=== PATIENT | female | born 1995 | race Caucasian/White ===

== ENCOUNTER 2018-07-31 12:15 | Emergency (ER) | payer OTHER ==
[~2018-07-31] VITALS: Ht 170.2 cm; Wt 90.7 kg
[2018-07-31] MEDS ORDERED: EFFEXOR 5050 MG/1 T1 PO (12:25)
[2018-07-31 12:50] LABS: ABSOLUTE BASOPHILS 0.1 thou/uL (0.0-0.2); ABSOLUTE EOSINOPHILS 0.3 thou/uL (0.0-0.7); ABSOLUTE LYMPHOCYTES 2.8 thou/uL (0.8-5.3); ABSOLUTE NEUTROPHILS 7.2 thou/uL (1.6-8.1); BASOPHILS 0.9 %; EOSINOPHILS 2.3 %; HEMATOCRIT 42.4 % (37.0-47.0); HEMOGLOBIN 14.3 gm/dL (12.0-15.0); LYMPHOCYTES 24.8 %; MCH 29.3 pg (26.0-34.0); MCHC 33.6 g/dL (28.0-37.0); MONOCYTES 8.7 %; NUCLEATED RBCS 0 /100WBC; PLATELET COUNT* 343 thou/uL (150-400); POLYS 63.3 %; RBC 4.88 mil/uL (4.20-5.00); RDW-CV 12.9 % (10.5-14.5); WBC 11.3 thou/uL (4.0-11.0)
[2018-07-31 12:59] LABS: ANION GAP 5 mmol/L (7-16); BUN 10 mg/dL (7-18); CALCIUM 9.6 mg/dL (8.5-10.1); CHLORIDE 100 mmol/L (98-107); CO2 28 mmol/L (21-32); CREATININE 0.8 mg/dL (0.6-1.3); GLUCOSE 95 mg/dL (70-99); POTASSIUM 3.4 mmol/L (3.5-5.1); SODIUM 133 mmol/L (136-145)
[2018-07-31 13:06] LABS: ALBUMIN 3.9 g/dL (3.4-5.0); ALKALINE PHOSPHATASE 65 U/L (46-116); SGOT 15 U/L (15-37); SGPT 29 U/L (30-65); TOTAL BILIRUBIN 0.3 mg/dL (<0.1-1.0); TOTAL PROTEIN 7.3 g/dL (6.4-8.2); TROPONIN-I LEVEL <0.06 ng/mL (<0.06)
[2018-07-31 13:23] VITALS: BP 108/78
--- NOTE | 2018-07-31 16:03 | EKG ---
[place] [address] ELECTROCARDIOGRAM REPORT Name: SUZAN TINEO [id number] Admission: 07/31/18 Attend Phys: Discharge: 07/31/18 Date of : [birth year] Report #: [id number] THIS REPORT FOR: //name// [facility] ED Test Date: 2018-07-31 Test Time: 12:21:57 Pat Name: SUZAN TINEO Department: Room: Gender: F [employer] Clerk: TESSIE : 1995 Requested By: Celio Finch Order Number: [id number] MD: King Mock Measurements Intervals [place] Rate: 105 P: 52 DE: 143 QRS: 31 QRSD: 92 T: 11 QT: 329 QTc: 435 Interpretive Statements Sinus tachycardia No previous ECG available for comparison Electronically Signed On 07-31-2018 16:03:19 BACK GRINDER by King Mock [email or web address] <ELECTRONICALLY SIGNED> By: King Mock MD, [facility] 07/31/18 1603 1221 1221 King Mock MD, FACC /EPI
== END 2018-07-31 13:24 | disposition home or self-care (01) ==
LOC: M.ERS 12:15
PROVIDERS: Family Medicine
DX: R07.89 Other chest pain (principal); F32.9 Major depressive disorder, single episode, unspecified

== ENCOUNTER 2020-10-24 20:29 | Emergency (ER) | payer OTHER ==
[~2020-10-24] VITALS: Ht 160 cm; Wt 80.3 kg
[~2020-10-24 20:29] MED LIST: EFFEXOR 5050 MG/1 T1 PO
[2020-10-24] MEDS ORDERED: ADDERALL 10 MG10 MG PO (21:13)
[2020-10-24] MEDS ORDERED: BUTALB-APAP-CA1 EACH PO (23:18)
[2020-10-24 23:36] VITALS: BP 120/84
== END 2020-10-24 23:38 | disposition home or self-care (01) ==
LOC: M.ERS 20:29
DX: G43.909 Migraine, unspecified, not intractable, without status migrainosus (principal)